=== PATIENT | male | born 1985 | race Caucasian/White ===

== ENCOUNTER 2022-03-10 23:58 | Emergency (ER) | payer OTHER ==
[~2022-03-10 23:58] MED LIST: BACITRACIN15 GM TOP; NORCO 5-325 TA1 EACH PO
[2022-03-11] MEDS ORDERED: AMOX TR-K CLV1 EAC4 PO (01:11)
[2022-03-11] MEDS ORDERED: NAPROXEN500 MG PO (01:11)
[2022-03-11] MEDS ORDERED: NORCO 5-325 TA1 EACH PO (01:11)
== END 2022-03-11 00:12 | disposition home or self-care (01) ==
LOC: FER 23:58
DX: K04.7 Periapical abscess without sinus (principal)
CPT/HCPCS: 99282; Q0163